=== PATIENT | female | born 1990 | race Hispanic/Latino ===

== ENCOUNTER 2019-05-30 14:09 | Outpatient (CLI) | payer BC ==
--- NOTE | 2019-05-30 14:58 | RAD ---
EXAM: Chest PA and lateral: HISTORY: Melanoma. Asthma COMPARISON: None FINDINGS: Heart: Normal cardiac silhouette Aorta: Unremarkable Pulmonary vessels: Normal Costophrenic angles: Costophrenic angles are clear. Lungs: No masses or consolidation. Diffuse patchy interstitial opacities. Pneumothorax: No pneumothorax Osseous structures: No osseous abnormalities IMPRESSION: Diffuse patchy interstitial opacities. Better interrogation with chest CT is recommended CODE T
== END 2019-05-30 14:10 | disposition home or self-care (01) ==
LOC: BICRAD 14:09
PROVIDERS: ATTEND Family Medicine
DX: K92.1 Melena (principal); R91.8 Other nonspecific abnormal finding of lung field
CPT/HCPCS: 71046

== ENCOUNTER 2023-06-23 20:33 | Emergency (ER) | payer BC, OTHER ==
[2023-06-23] MEDS ORDERED: Ketorolac Tromethamine 30 MG/ML VIAL ONE (22:04)
== END 2023-06-23 22:29 | disposition home or self-care (01) ==
LOC: ERS 20:33
DX: S16.1XXA Strain of muscle, fascia and tendon at neck level, initial encounter (principal); S39.012A Strain of muscle, fascia and tendon of lower back, initial encounter; Z87.891 Personal history of nicotine dependence; V89.2XXA Person injured in unspecified motor-vehicle accident, traffic, initial encounter
CPT/HCPCS: 71045; 72100; 93005; 96372; J1885

== ENCOUNTER 2025-07-08 00:41 | Emergency (ER) | payer BC, SELFPAY ==
[2025-07-08] MEDS ORDERED: Lidocaine Viscous Sol 2% 15 ml UD Cup ONE (00:48)
[2025-07-08] MEDS ORDERED: Acetaminophen 500 MG TAB ONE (01:43)
== END 2025-07-08 01:45 | disposition home or self-care (01) ==
LOC: ERS 00:41
DX: H66.91 Otitis media, unspecified, right ear (principal); H61.21 Impacted cerumen, right ear; J45.909 Unspecified asthma, uncomplicated; F17.210 Nicotine dependence, cigarettes, uncomplicated; Z79.51 Long term (current) use of inhaled steroids
CPT/HCPCS: 99282